=== PATIENT | female | born 1975 | race Caucasian/White ===

== ENCOUNTER → 2016-11-02 | Outpatient (CLI) | payer OTHER ==
--- NOTE | 2016-11-02 14:38 | REP ---
Right knee MRI: There are no comparison studies. The studies performed with proton density, T2 and gradient echo weighted data sets in sagittal, axial coronal projections. There is a suprapatellar effusion. There are peak and synovium outlined by the effusion. The patellar and trochlear articular cartilage is unremarkable. Articular cartilage of the medial lateral compartments is unremarkable. There is no marrow edema. There is no Vyas's cyst. The anterior posterior cruciate ligaments are unremarkable. The quality/patellar tendons are unremarkable. The lateral collateral ligament is unremarkable. There is a small volume of intermediate signal adjacent to the medial collateral ligament, suggestive of mild medial collateral ligament sprain. There is an intermediate and type 1 and type 2 signal in the posterior horn of the medial meniscus. This indicates that type 1 and type 2 degeneration. On some of the images that type 2 signal appears to intersect with the inferior articular surface of the meniscus, however, this is not certain. However, this may represent a posterior horn medial meniscal tear. 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 The anterior horn is unremarkable. Lateral meniscus is unremarkable. There is a suprapatellar effusion. No marrow edema. Possible mild medial collateral ligament sprain. Correlate clinically. Signed by Howard Devlin MD 11/02/2016 02:29 P
== END ==
LOC: M RAD 12:36
PROVIDERS: ATTEND Physician Assistant
DX: M79.604 Pain in right leg (principal)

== ENCOUNTER → 2017-10-09 | Outpatient (REF) | payer BC | LOC: M SFHCLERA 17:09 | DX: H81.21 Vestibular neuronitis, right ear (principal) ==

== ENCOUNTER → 2018-11-11 | Outpatient (REF) | payer BC | LOC: M SFHCLERA 14:14 | PROVIDERS: ATTEND Physician Assistant | DX: R30.0 Dysuria (principal) ==

== ENCOUNTER → 2020-04-05 | Outpatient (CLI) | payer BC | LOC: M LABSMTC 13:20 | PROVIDERS: ATTEND Family Medicine | DX: Z20.828 Contact with and (suspected) exposure to other viral communicable diseases (principal) | CPT/HCPCS: C9803; U0003 ==

== ENCOUNTER → 2025-05-09 | Outpatient (CLI) | payer BC | LOC: M RAD 16:24 | PROVIDERS: ATTEND Registered Nurse | DX: R91.1 Solitary pulmonary nodule (principal) ==